=== PATIENT | female | born 1960 | race Caucasian/White ===

== ENCOUNTER → 2022-01-06 | Day surgery (SDC) | payer OTHER ==
[~2022-01-06] VITALS: Ht 160 cm; Wt 104.3 kg
[~2022-01-06] MED LIST: AZITHROMYCIN250 MG PO; CARVEDILOL12.5 MG PO; CATAPRES0.1 MG PO; CEFDINIR300 MG PO; CENTRUM SILVER1 EAC1 PO; CITRATE OF MAG296 ML PO; CLARITIN10 MG PO; CLOBETASOL 0.0560 GM TOP; COLACE100 MG PO; COZAAR50 MG PO; DIFLUCAN150 MG PO; FAMOTIDINE40 MG PO; FLINTSTONES1 EAC1 PO; FLOVENT HF120 PUFFS/; HCTZ25 MG PO; HUMALOG 75100 UNIT/M SC; HUMULIN R500 UNIT/1 SC; LISINOPRIL40 MG PO; MAG-OXIDE 400M400 MG PO; NEURONTIN300 MG PO; NORVASC2.5 MG PO; NORVASC5 MG PO; OXYCODONE-ACET1 EAC1 PO; OXYCODONE-ACET1 EACH PO; PERCOCET 10-321 EACH PO; PREGABALIN100 MG PO; PRILOSEC20 MG PO; SINEQUAN50 MG PO; TESSALON PERLE100 MG PO; TRAZODONE 50MG50 MG PO; TRESIBA FL200 UNIT/1 SC; VITAMIN D3250 MC2 PO; VOLTAREN100 GM TOP; ZANAFLEX4 M1 PO
== END | disposition home or self-care (01) ==
LOC: FAS 12:36
DX: H26.493 Other secondary cataract, bilateral (principal); E11.9 Type 2 diabetes mellitus without complications; I10 Essential (primary) hypertension; Z85.528 Personal history of other malignant neoplasm of kidney; Z88.8 Allergy status to other drugs, medicaments and biological substances; Z88.1 Allergy status to other antibiotic agents; Z91.041 Radiographic dye allergy status; Z91.040 Latex allergy status

== ENCOUNTER → 2022-02-03 | Day surgery (SDC) | payer OTHER ==
[~2022-02-03] VITALS: Ht 160 cm; Wt 104.3 kg
== END | disposition home or self-care (01) ==
LOC: FAS 13:12
DX: H26.493 Other secondary cataract, bilateral (principal); M19.90 Unspecified osteoarthritis, unspecified site; E11.9 Type 2 diabetes mellitus without complications; I10 Essential (primary) hypertension; Z88.8 Allergy status to other drugs, medicaments and biological substances; Z88.6 Allergy status to analgesic agent; Z88.1 Allergy status to other antibiotic agents; Z91.040 Latex allergy status

== ENCOUNTER 2022-03-30 11:59 | Emergency (ER) | payer OTHER ==
[~2022-03-30 11:59] MED LIST changes: +LIDOCAINE 5% P1 EACH TOP
[2022-03-30 12:35] LABS: BASOPHIL 0.1 % (0-2); EOSINOPHIL 0.3 % (0-5); HCT 31.3 % (37.0-47.0); HGB 9.4 g/dl (12.5-16.0); LYMPHOCYTE 11.4 % (15-48); MCH 23.3 pg (25.0-31.0); MCV 77.5 fL (78.0-100.0); MONOCYTE 3.8 % (0-12); MPV 11.1 fL (6.0-9.5); NEUTROPHIL 82.3 % (41-80); NRBC 0; PLT 297 K/uL (150-400); RBC 4.04 M/uL (4.20-5.40); RDW 16.7 % (11.5-14.0); WBC 11.8 K/uL (4.0-10.5)
[2022-03-30 13:03] LABS: BILIRUBIN - TOTAL 0.5 mg/dL (0.2-1.0); BUN/CREAT RATIO (CALC) 22.7 RATIO; CREATININE 1.28 mg/dL (0.51-0.95); GLOBULIN (CALCULATION) 4.9 g/dL; POTASSIUM 5.4 mmol/L (3.5-5.1); TOTAL PROTEIN 7.9 g/dL (6.4-8.2)
== END 2022-03-30 14:50 | disposition other institution (70) ==
LOC: FER 11:59
PROVIDERS: Emergency Medicine
DX: I63.22 Cerebral infarction due to unspecified occlusion or stenosis of basilar artery (principal); I63.542 Cerebral infarction due to unspecified occlusion or stenosis of left cerebellar artery; R53.1 Weakness; G81.90 Hemiplegia, unspecified affecting unspecified side; R29.737 NIHSS score 37; Z88.6 Allergy status to analgesic agent; Z88.8 Allergy status to other drugs, medicaments and biological substances; Z88.5 Allergy status to narcotic agent; Z88.1 Allergy status to other antibiotic agents; Z91.041 Radiographic dye allergy status
CPT/HCPCS: 36415; 36600; 70450; 71045; 80053; 82803; 83605; 83880; 84145; 85025; 93005; 94760; J1953; J2930; J7030; Q9967